=== PATIENT | male | born 1990 | race Caucasian/White ===

== ENCOUNTER 2020-08-15 15:59 | Emergency (ER) | payer MEDICAID ==
[~2020-08-15] VITALS: Ht 165.1 cm; Wt 65.0 kg
[2020-08-15] MEDS ORDERED: ONDANSETRON 4MG ODT PO ONE (16:30)
[2020-08-15] MEDS ORDERED: HYDROCODONE/ACETAMINOPHEN 5/325MG TABLET PO ONE (16:30)
[2020-08-15 17:02] VITALS: BP 128/80
== END 2020-08-15 16:58 | disposition home or self-care (01) ==
LOC: ER 15:59
DX: K02.9 Dental caries, unspecified (principal)
CPT/HCPCS: 99283; Q0162